=== PATIENT | female | born 1955 | race Caucasian/White ===

== ENCOUNTER → 2017-06-23 | Outpatient (CLI) | payer MEDICARE | LOC: MAMO 06-16 10:00 | DX: I10 Essential (primary) hypertension (principal) | CPT/HCPCS: G0206 ==

== ENCOUNTER → 2020-10-17 | Outpatient (CLI) | payer MEDICARE ==
[2020-10-17 10:01] LABS: RED BLOOD COUNT 5.21 M/UL (4.00-5.10); WHITE BLOOD COUNT 3.2 K/UL (4.5-11.0)
[2020-10-17 10:09] LABS: BUN/CREATININE RATIO 19 (0-10)
== END ==
LOC: LAB 09:02
PROVIDERS: Colon & Rectal Surgery
DX: Z01.818 Encounter for other preprocedural examination (principal); K62.89 Other specified diseases of anus and rectum
CPT/HCPCS: 36415; 71046; 80053; 85027; 93005

== ENCOUNTER → 2021-09-23 | Outpatient (CLI) | payer MEDICARE | LOC: MAMO 14:47 | DX: Z12.31 Encounter for screening mammogram for malignant neoplasm of breast (principal) | CPT/HCPCS: 77063; 77067 ==